=== PATIENT | male | born 1960 | race Caucasian/White ===

== ENCOUNTER → 2017-05-30 | Outpatient (CLI) | payer MEDICARE, OTHER | END | disposition home or self-care (01) | LOC: LABWHC1 17:29 | PROVIDERS: ATTEND Family Medicine | DX: A08.4 Viral intestinal infection, unspecified (principal) | CPT/HCPCS: 87045; 87046; 87324; 87329 ==

== ENCOUNTER → 2019-03-05 | Outpatient (CLI) | payer MEDICARE, OTHER ==
--- NOTE | 2019-03-06 10:03 | FL ---
EXAMINATION TYPE: FL barium swallow DATE OF EXAM: 03/05/2019 CLINICAL HISTORY: Amyotrophic lateral sclerosis and sensation feeling at the level of the thyroid fátima t is intermittent with choking. TECHNIQUE: A double contrast esophagram is performed utilizing air and barium. A total of 1 minute 18 seconds of fluoroscopic time was utilized during procedure. 19 fluoroscopic images were saved. COMPARISON: None FINDINGS: On initial swallow there is deep laryngeal penetration with the thin consistency. On a seco nd repeated swallow there is again deep penetration with a small amount of liquid barium layering on the true vocal cords. No cough reflex was elicited by the patient. Mild vallecular and piriform reten tion was also seen. Given the persistent penetration the patient was not placed in a supine position to continue the examination. Esophageal motility was unremarkable without tertiary contractions. Ante rior osteophytes at C4-C5, C5-C6 and C6-C7 to create a mild impression on the posterior esophagus wit hout obstruction. No stricture is seen. No hiatal hernia. IMPRESSION: 1. Persistent deep laryngeal penetration without eliciting a cough reflex. Modified barium swallow st udy is recommended. 2. Mild vallecular and piriform retention. 3. Impression on the posterior esophagus at C4-C5, C5-C6 and C6-C7 secondary to anterior bridging ost eophytes of the cervical spine. No stricture, no obstruction, and no hiatal hernia. No esophageal dys motility.
== END | disposition home or self-care (01) ==
LOC: RADUSWWP 11:07
PROVIDERS: ATTEND Psychiatry & Neurology Neurology
DX: G12.21 Amyotrophic lateral sclerosis (principal)
CPT/HCPCS: 74220

== ENCOUNTER → 2019-05-05 | Outpatient (CLI) | payer MEDICARE, OTHER ==
--- NOTE | 2019-05-05 14:13 | FL ---
EXAMINATION TYPE: FL barium swallow w video DATE OF EXAM: 05/05/2019 COMPARISON: NONE HISTORY: ALS, difficulty swallowing TECHNIQUE: Fluoroscopy. FINDINGS: Fluoroscopic guidance was provided for the procedure performed in conjunction with the [facility] pathology department. Please see complete report forthcoming from the Speech Pathology departmen t. Various consistencies from thin liquid to solids were administered. Fluoroscopy time 2 minutes 54 seconds. Number of images: 0. No aspiration was evident. Penetration was evident with nectar thick liquids. Pooling was evident within the vallecula. There is very poor bolus formation within the anterior oropharynx. With chin tuck and exertion some s wallowing could be performed. Additional episodes of penetration were not evident with other consiste ncies. There is marked hesitancy of swallowing initiation. IMPRESSION: 1. Penetration with nectar thick liquids.
== END | disposition home or self-care (01) ==
LOC: RADFLMAIN 11:14
PROVIDERS: ATTEND Psychiatry & Neurology Neurology
DX: G12.21 Amyotrophic lateral sclerosis (principal)
CPT/HCPCS: 74230

== ENCOUNTER 2019-06-04 13:27 | Emergency (ER) | payer MEDICARE, OTHER ==
[2019-06-04 13:47] VITALS: RESP 18
--- NOTE | 2019-06-04 14:34 | ED ---
General Adult HPI - General Source: family Mode of arrival: wheelchair Limitations: no limitations <David Lincoln - Last Filed: 06/05/19 01:44> <Akua Kerr - Last Filed: 06/08/19 16:35> - General Chief complaint: Recheck/Abnormal Lab/Rx Stated complaint: Fever, sent by DR Kennedy Seen by Provider: 06/04/19 14:13 - History of Present Illness Initial comments: Patient is a 58-year-old male with history of ALS and dementia is presenting to the emergency department with a chief complaint of fevers and chills. The is present in the room who is the historian this patient is nonverbal. The reports the patient developed an intermittent productive cough with unknown color of sputum yesterday. Patient also developed fevers and chills over the same period of time. states they went to the primary care with the patient had a fever in the suggested he come to the emergency department for further evaluation. Patient has a Mediport for daily ALS medication administration. Denies any vomiting or diarrhea, hematuria, hematochezia or melena. Patient denies any chest pain or abdominal pain. (David Lincoln) - Related Data Home Medications Medication Instructions Recorded Confirmed Albuterol Sulfate [Proair Hfa] 1 - 2 puff INHALATION RT-Q6H PRN 06/04/19 06/04/19 Ascorbic Acid [Vitamin C] 500 mg PO DAILY 06/04/19 06/04/19 Aspirin/Acetaminophen/Caffeine 1 tab PO DAILY PRN 06/04/19 06/04/19 [Excedrin Migraine Caplet] Cholecalciferol [Vitamin D3 (25 2,000 unit PO DAILY 06/04/19 06/04/19 Mcg = 1000 Iu)] Cyanocobalamin [Vitamin B-12 1,000 mcg SQ QMONTH 06/04/19 06/04/19 Injection] DULoxetine HCL [Cymbalta] 30 mg PO BID 06/04/19 06/04/19 Dextromethorphan HBr/Quinidine 1 cap PO Q12H 06/04/19 06/04/19 [Nuedexta 20-10 mg Capsule] Fluticasone Nasal [place] [Flonase 1 spray EA NOSTRIL BID 06/04/19 06/04/19 Nasal [place]] Fluticasone/Salmeterol [Advair 1 puff INHALATION RT-BID 06/04/19 06/04/19 100-50 Diskus] Glycopyrrolate [Robinul] 1 mg PO Q12H 06/04/19 06/04/19 Lactose-Reduced Food/Fiber [Jevity 1 can PO TID 06/04/19 06/04/19 1.2 Roly Liquid] Loratadine [Claritin] 10 mg PO DAILY 06/04/19 06/04/19 Omeprazole 40 mg PO DAILY 06/04/19 06/04/19 Riluzole [Rilutek] 50 mg PO Q12H 06/04/19 06/04/19 Rivastigmine [Rivastigmine 1 patch TRANSDERM DAILY 06/04/19 06/04/19 9.5MG/24Hr] Allergies Allergy/AdvReac Type Severity Reaction Status Date / Time amoxicillin [From Augmentin] Allergy Unknown Verified 06/04/19 14:45 clavulanic acid Allergy Unknown Verified 06/04/19 14:45 [From Augmentin] vancomycin Allergy Unknown Verified 06/04/19 14:45 Review of Systems ROS Other: All systems not noted in ROS Statement are negative. <David Lincoln - Last Filed: 06/05/19 01:44> ROS Other: All systems not noted in ROS Statement are negative. <Akua Kerr - Last Filed: 06/08/19 16:35> ROS Statement: Those systems with pertinent positive or pertinent negative responses have been documented in the HPI. Past Medical History Past Medical History: Dementia Additional Past Medical History / Comment(s): ALS, History of Any Multi-Drug Resistant Organisms: None Reported Past Surgical History: Hernia Repair, Joint Replacement, Orthopedic Surgery Past Psychological History: No Psychological Hx Reported Smoking Status: Never smoker Past Alcohol Use History: None Reported Past Drug Use History: None Reported <David Lincoln - Last Filed: 06/05/19 01:44> General Exam Limitations: no limitations, language barrier (Nonverbal) General appearance: alert, in no apparent distress Head exam: Present: atraumatic, normocephalic, normal inspection Eye exam: Present: normal appearance, PERRL, EOMI. Absent: conjunctival injection Pupils: Present: normal accommodation ENT exam: Present: normal exam, normal oropharynx, mucous membranes moist, TM's normal bilaterally, normal external ear exam Neck exam: Present: normal inspection, full ROM. Absent: lymphadenopathy Respiratory exam: Present: normal lung sounds bilaterally. Absent: respiratory distress, wheezes Cardiovascular Exam: Present: regular rate, normal rhythm, normal heart sounds GI/Abdominal exam: Present: soft, normal bowel sounds. Absent: tenderness, guarding, rebound, other (Negative McBurney point tenderness, negative Jackson, negative bacteria.) Extremities exam: Present: normal inspection, full ROM Back exam: Present: normal inspection, full ROM Neurological exam: Present: alert, oriented X3 Psychiatric exam: Present: normal affect, normal mood Skin exam: Present: warm, intact, normal color <David Lincoln - Last Filed: 06/05/19 01:44> Course Vital Signs 06/04/19 06/04/19 06/04/19 13:43 13:57 15:02 Temperature 98.5 F 97.5 F L Pulse Rate 104 H 89 Respiratory 18 18 18 Rate Blood Pressure 115/78 118/76 O2 Sat by Pulse 93 L 94 L Oximetry 06/04/19 18:01 Temperature 98.8 F Pulse Rate 70 Respiratory 18 Rate Blood Pressure 121/86 O2 Sat by Pulse 99 Oximetry Medical Decision Making - Lab Data Result diagrams: 06/04/19 15:00 06/04/19 15:00 <David Lincoln - Last Filed: 06/05/19 01:44> - Lab Data Result diagrams: 06/04/19 15:00 06/04/19 15:00 <Akua Kerr - Last Filed: 06/08/19 16:35> - Medical Decision Making Patient is a 58-year-old male with history of ALS and frontal dementia is presenting to emergency Department with a chief complaint of fever and chills. Patient is nonverbal. is the historian. According to , the patient has developed chills and tremors last night. They went to the primary care today who suggested they come to the ED for further evaluation and a possible pneumonia. states at the primary care the patient had a fever. Patient is afebrile in the ED. Chest x-ray is unremarkable. CBC, CMP are unremarkable. No leukocytosis. No tremors, shaking present in physical examination or throughout the ED stay. Patient is diaphoretic. Patient denies any chest pain or abdominal pain. At this point no further medical management is necessary as patient does not fit any admission criteria. Dr. Kerr also examined the patie nt and attempted to call the primary care physician but was not able to get in contact with him. Strict return parameters were thoroughly discussed with patient and were understanding and agreeable. Case discussed with physician. (David Lincoln) I was available for consultation in the emergency department. The history and physical exam was done by the midlevel provider. I was consulted for this patient's care. I reviewed the case with the midlevel provider and based on their presentation of the patient, I agree with the assessment, medical decision making and plan of care as documented. I then evaluated the patient myself. I attempted to call the patients PCP who was unavailable. I discussed the patients care with his . The feels reassured. The patient will be discharged home with strict return parameters. (Akua Kerr) - Lab Data Lab Results 06/04/19 06/04/19 06/04/19 Range/Units 15:00 15:00 15:43 WBC 4.8 (3.8-10.6) k/uL RBC 4.32 (4.30-5.90) m/uL Hgb 13.9 (13.0-17.5) gm/dL Hct 41.4 (39.0-53.0) % MCV 95.9 (80.0-100.0) fL MCH 32.3 (25.0-35.0) pg MCHC 33.7 (31.0-37.0) g/dL RDW 14.0 (11.5-15.5) % Plt Count 181 (150-450) k/uL Neutrophils % 81 % Lymphocytes % 8 % Monocytes % 7 % Eosinophils % 1 % Basophils % 0 % Neutrophils # 3.9 (1.3-7.7) k/uL Lymphocytes # 0.4 L (1.0-4.8) k/uL Monocytes # 0.4 (0-1.0) k/uL Eosinophils # 0.1 (0-0.7) k/uL Basophils # 0.0 (0-0.2) k/uL Sodium 137 (137-145) mmol/L Potassium 4.3 (3.5-5.1) mmol/L Chloride 103 (98-107) mmol/L Carbon Dioxide 25 (22-30) mmol/L Anion Gap 9 mmol/L BUN 22 H (9-20) mg/dL Creatinine 0.72 (0.66-1.25) mg/dL Est GFR (CKD-EPI)AfAm >90 (>60 ml/min/1.73 sqM) Est GFR (CKD-EPI)NonAf >90 (>60 ml/min/1.73 sqM) Glucose 122 H (74-99) mg/dL Calcium 9.0 (8.4-10.2) mg/dL Total Bilirubin 1.0 (0.2-1.3) mg/dL AST 35 (17-59) U/L ALT 28 (21-72) U/L Alkaline Phosphatase 83 (38-126) U/L Total Protein 6.7 (6.3-8.2) g/dL Albumin 3.9 (3.5-5.0) g/dL Influenza Type A RNA Not Detected (Not Detectd) Influenza Type B (PCR) Not Detected (Not Detectd) Disposition Is patient prescribed a controlled substance at d/c from ED?: No Time of Disposition: 17:51 <David Lincoln - Last Filed: 06/05/19 01:44> <Akua Kerr - Last Filed: 06/08/19 16:35> Clinical Impression: Chills, Diaphoresis Disposition: HOME SELF-CARE Condition: Stable Instructions (If sedation given, give patient instructions): Viral Pneumonia (DC) Additional Instructions: Please follow-up with your primary care. Please return to emergency department if symptoms worsen. Referrals: Antonio Palumbo MD [Primary Care Provider] - 1-2 days
--- NOTE | 2019-06-04 14:59 | XR ---
EXAMINATION TYPE: XR chest 2V DATE OF EXAM: 06/04/2019 COMPARISON: 09/24/2012 HISTORY: Shortness of breath TECHNIQUE: Frontal and lateral views of the chest are obtained. FINDINGS: Scattered senescent parenchymal changes noted. Hyperinflation compatible with COPD. No evidence for infiltrate. No evidence for atelectasis. Heart size is stable. Mediastinal structures are stable and grossly unremarkable. No evidence for hilar prominence. Degenerative changes dorsal spine. IMPRESSION: 1. No evidence for acute pulmonary disease.
[2019-06-04 15:11] LABS: Basophils % (A) 0 %; Eosinophils # (A) 0.1 k/uL (0-0.7); Eosinophils % (A) 1 %; HCT 41.4 % (39.0-53.0); HGB 13.9 gm/dL (13.0-17.5); Lymphocytes # (A) 0.4 k/uL (1.0-4.8); Lymphocytes % (A) 8 %; MCH 32.3 pg (25.0-35.0); MCHC 33.7 g/dL (31.0-37.0); MCV 95.9 fL (80.0-100.0); Mean Platelet Volume 6.9; Monocytes # (A) 0.4 k/uL (0-1.0); Monocytes % (A) 7 %; Neutrophils # (A) 3.9 k/uL (1.3-7.7); Neutrophils % (A) 81 %; Platelet Count 181 k/uL (150-450); RBC 4.32 m/uL (4.30-5.90); WBC 4.8 k/uL (3.8-10.6)
[2019-06-04 15:30] LABS: ALT 28 U/L (21-72); AST 35 U/L (17-59); African American GFR (CKD) >90 (>60 ml/min/1.73 sqM); Albumin 3.9 g/dL (3.5-5.0); Alkaline Phosphatase 83 U/L (38-126); Anion Gap 9 mmol/L; Blood Urea Nitrogen 22 mg/dL (9-20); Carbon Dioxide 25 mmol/L (22-30); Chloride 103 mmol/L (98-107); Glucose 122 mg/dL (74-99); Potassium 4.3 mmol/L (3.5-5.1); Sodium 137 mmol/L (137-145); Total Protein 6.7 g/dL (6.3-8.2)
[2019-06-04] MEDS ORDERED: SODIUM CHLORIDE 0.9% 500 ML 500 ML IV STA (16:05)
[2019-06-04 18:02] VITALS: BP 121/86; PULSE 70; TEMP 98.8
== END 2019-06-04 18:01 | disposition home or self-care (01) ==
LOC: EC 13:27
DX: R61 Generalized hyperhidrosis (principal); R68.83 Chills (without fever); G12.21 Amyotrophic lateral sclerosis; G31.09 Other frontotemporal neurocognitive disorder; F02.80 Dementia in other diseases classified elsewhere, unspecified severity, without behavioral disturbance, psychotic disturbance, mood disturbance, and anxiety; Z79.82 Long term (current) use of aspirin; Z79.899 Other long term (current) drug therapy; Z88.0 Allergy status to penicillin
CPT/HCPCS: 36415; 71046; 80053; 85025; 87502; 99283

== ENCOUNTER 2019-10-28 15:54 | Emergency (ER) | payer BC, MEDICARE, OTHER ==
--- NOTE | 2019-10-28 17:50 | ED ---
General Adult HPI - General Chief complaint: Recheck/Abnormal Lab/Rx Stated complaint: Feeding tube issues Time Seen by Provider: 10/28/19 16:00 Source: police Mode of arrival: wheelchair Limitations: no limitations, altered mental status, physical limitation - History of Present Illness Initial comments: The patient is a 59-year-old male with past nuchal history of ALS and dementia who presents to the emergency department with malfunction of his PEG tube. He does arrive from alf. Police do provide the history as the patient is nonverbal. They stated they attempted to use the PEG tube today however he did have some leaking from around it and it would not flush. They're unsure if the patient sustained any trauma to the tube. He did have to go to forensics today and they are unsure with the travel if it got manipulated. The patient cannot provide a history. No pain with palpation of the abdomen. There are no other alleviating, precipitating or modifying factors - Related Data Home Medications Medication Instructions Recorded Confirmed Albuterol Sulfate [Proair Hfa] 1 - 2 puff INHALATION RT-Q6H PRN 06/04/19 06/04/19 Ascorbic Acid [Vitamin C] 500 mg PO DAILY 06/04/19 06/04/19 Aspirin/Acetaminophen/Caffeine 1 tab PO DAILY PRN 06/04/19 06/04/19 [Excedrin Migraine Caplet] Cholecalciferol [Vitamin D3 (25 2,000 unit PO DAILY 06/04/19 06/04/19 Mcg = 1000 Iu)] Cyanocobalamin [Vitamin B-12 1,000 mcg SQ QMONTH 06/04/19 06/04/19 Injection] DULoxetine HCL [Cymbalta] 30 mg PO BID 06/04/19 06/04/19 Dextromethorphan HBr/Quinidine 1 cap PO Q12H 06/04/19 06/04/19 [Nuedexta 20-10 mg Capsule] Fluticasone Nasal [place] [Flonase 1 spray EA NOSTRIL BID 06/04/19 06/04/19 Nasal [place]] Fluticasone/Salmeterol [Advair 1 puff INHALATION RT-BID 06/04/19 06/04/19 100-50 Diskus] Glycopyrrolate [Robinul] 1 mg PO Q12H 06/04/19 06/04/19 Lactose-Reduced Food/Fiber [Jevity 1 can PO TID 06/04/19 06/04/19 1.2 Roly Liquid] Loratadine [Claritin] 10 mg PO DAILY 06/04/19 06/04/19 Omeprazole 40 mg PO DAILY 06/04/19 06/04/19 Riluzole [Rilutek] 50 mg PO Q12H 06/04/19 06/04/19 Rivastigmine [Rivastigmine 1 patch TRANSDERM DAILY 06/04/19 06/04/19 9.5MG/24Hr] Allergies Allergy/AdvReac Type Severity Reaction Status Date / Time amoxicillin [From Augmentin] Allergy Unknown Verified 10/28/19 16:01 clavulanic acid Allergy Unknown Verified 10/28/19 16:01 [From Augmentin] vancomycin Allergy Unknown Verified 10/28/19 16:01 Review of Systems ROS Statement: Those systems with pertinent positive or pertinent negative responses have been documented in the HPI. ROS Other: All systems not noted in ROS Statement are negative. Past Medical History Past Medical History: Dementia Additional Past Medical History / Comment(s): ALS, History of Any Multi-Drug Resistant Organisms: None Reported Past Surgical History: Hernia Repair, Joint Replacement, Orthopedic Surgery Past Psychological History: No Psychological Hx Reported Smoking Status: Never smoker Past Alcohol Use History: None Reported Past Drug Use History: None Reported General Exam Limitations: altered mental status, physical limitation General appearance: alert, in no apparent distress Respiratory exam: Present: normal lung sounds bilaterally. Absent: respiratory distress, wheezes, rales, rhonchi, stridor Cardiovascular Exam: Present: regular rate, normal rhythm, normal heart sounds. Absent: systolic murmur, diastolic murmur, rubs, gallop, clicks GI/Abdominal exam: Present: soft, other (peg tube, luq with mild blood surrounding skin opening. small amount of granulation tissue present). Absent: distended, tenderness Course Vital Signs 10/28/19 10/28/19 15:59 18:00 Temperature 97.5 F L 97.7 F Pulse Rate 86 78 Respiratory 16 18 Rate Blood Pressure 125/90 130/86 O2 Sat by Pulse 97 97 Oximetry Medical Decision Making - Medical Decision Making Upon the patient was placed into room 17. The patient does have some blood- tinged fluid around the base of his PEG tube. As the PEG tube is leaking I did recommend replacing it. The old tube is removed and there was no fluid within the balloon. I did replace using a 16-Cypriot JOHN tube. An x-ray with Isovue was performed after placement which demonstrated adequate placement of the PEG tube. It was inflated with 4 mL of sterile water. At this time the patient will be discharged to alf. Disposition Clinical Impression: PEG tube malfunction Disposition: HOME SELF-CARE Condition: Stable Instructions (If sedation given, give patient instructions): How to Use and Care for Your PEG Tube (ED) Additional Instructions: You received a new PEG tube today. Return to the emergency room for any new worsening symptoms Is patient prescribed a controlled substance at d/c from ED?: No Referrals: Antonio Palumbo MD [Primary Care Provider] - 1-2 days Time of Disposition: 17:50
--- NOTE | 2019-10-28 17:54 | XR ---
EXAMINATION TYPE: XR abdomen 1V DATE OF EXAM: 10/28/2019 COMPARISON: NONE HISTORY: PEG tube placement TECHNIQUE: Single view FINDINGS: Contrast was injected Isovue into the gastrostomy tube. Tube is in good position. The contr ast opacifies the stomach. There is no extravasation. IMPRESSION: PEG tube is in good position.
[2019-10-28 18:01] VITALS: BP 130/86; PULSE 78; RESP 18; TEMP 97.7
== END 2019-10-28 18:02 | disposition home or self-care (01) ==
LOC: EC 15:54
DX: K94.23 Gastrostomy malfunction (principal); F03.90 Unspecified dementia, unspecified severity, without behavioral disturbance, psychotic disturbance, mood disturbance, and anxiety; G12.21 Amyotrophic lateral sclerosis; Z88.0 Allergy status to penicillin; Z88.1 Allergy status to other antibiotic agents; Z79.51 Long term (current) use of inhaled steroids; Z79.899 Other long term (current) drug therapy
CPT/HCPCS: 99283; 43762; 74018; Q9967

== ENCOUNTER 2019-11-20 17:30 | Emergency (ER) | payer MEDICARE, OTHER ==
[2019-11-20 18:41] LABS: Basophils % (A) 0 %; Eosinophils % (A) 1 %; HCT 39.8 % (39.0-53.0); HGB 13.1 gm/dL (13.0-17.5); Lymphocytes # (A) 0.8 k/uL (1.0-4.8); Lymphocytes % (A) 13 %; MCH 31.6 pg (25.0-35.0); MCV 95.8 fL (80.0-100.0); Mean Platelet Volume 7.5; Monocytes # (A) 0.4 k/uL (0-1.0); Monocytes % (A) 6 %; Neutrophils # (A) 4.8 k/uL (1.3-7.7); Neutrophils % (A) 78 %; Platelet Count 200 k/uL (150-450); RBC 4.16 m/uL (4.30-5.90); RDW 13.5 % (11.5-15.5); WBC 6.1 k/uL (3.8-10.6)
--- NOTE | 2019-11-20 18:50 | XR ---
EXAMINATION TYPE: XR KUB DATE OF EXAM: 11/20/2019 COMPARISON: 10/28/2019 HISTORY: Check tube placement TECHNIQUE: A single view of the abdomen was obtained. FINDINGS: There is 35 mm of contrast injected into the PEG tube. Stomach has normal contour. I see no filling d efect. There is no contrast extravasation. IMPRESSION: Gastrostomy tube is in good position.
--- NOTE | 2019-11-20 18:50 | XR ---
EXAMINATION TYPE: XR chest 1V DATE OF EXAM: 11/20/2019 COMPARISON: 06/04/2019 HISTORY: Fever TECHNIQUE: FINDINGS: Heart and mediastinum are normal. Lungs are clear. Diaphragm is normal. Bony thorax is inta ct. There is right-sided central venous catheter with tip in the superior vena cava. IMPRESSION: Normal chest. No change.
[2019-11-20 18:58] LABS: ALT 23 U/L (4-49); AST 31 U/L (17-59); African American GFR (CKD) >90 (>60 ml/min/1.73 sqM); Alkaline Phosphatase 102 U/L (38-126); Anion Gap 5 mmol/L; Blood Urea Nitrogen 17 mg/dL (9-20); Calcium 9.2 mg/dL (8.4-10.2); Carbon Dioxide 32 mmol/L (22-30); Chloride 100 mmol/L (98-107); Glucose 113 mg/dL (74-99); Non-African American GFR(CKD) >90 (>60 ml/min/1.73 sqM); Potassium 4.6 mmol/L (3.5-5.1); Sodium 137 mmol/L (137-145); Total Bilirubin 0.5 mg/dL (0.2-1.3); Total Protein 6.7 g/dL (6.3-8.2)
--- NOTE | 2019-11-20 19:11 | ED ---
General Adult HPI - General Chief complaint: Recheck/Abnormal Lab/Rx Stated complaint: Peg Tube Issues Time Seen by Provider: 11/20/19 17:50 Source: patient, EMS, RN notes reviewed Mode of arrival: EMS Limitations: language barrier - History of Present Illness Initial comments: This a 59-year-old male presents emergency Department with chief complaint of clogged PEG tube. Patient reportedly was given medications this morning shortly after was unable to pass any fluids or medications through the PEG tube. Patient has underlying ALS is nonverbal and is taking care of at hospice house at this time. Caregiver in the room reports no recent illnesses. Patient had no medication changes. Vitals were reviewed showed evidence of a fever. I did question caregiver regarding antibiosis and she declines again. She does state that there is been some erosion and his port site in which they did not use any more as he was only receiving infusions for medications to slow down the progression of his ALS. Patient denies cough, congestion, vomiting, diarrhea - Related Data Home Medications Medication Instructions Recorded Confirmed Albuterol Sulfate [Proair Hfa] 1 - 2 puff INHALATION RT-Q6H PRN 06/04/19 06/04/19 Ascorbic Acid [Vitamin C] 500 mg PO DAILY 06/04/19 06/04/19 Aspirin/Acetaminophen/Caffeine 1 tab PO DAILY PRN 06/04/19 06/04/19 [Excedrin Migraine Caplet] Cholecalciferol [Vitamin D3 (25 2,000 unit PO DAILY 06/04/19 06/04/19 Mcg = 1000 Iu)] Cyanocobalamin [Vitamin B-12 1,000 mcg SQ QMONTH 06/04/19 06/04/19 Injection] DULoxetine HCL [Cymbalta] 30 mg PO BID 06/04/19 06/04/19 Dextromethorphan HBr/Quinidine 1 cap PO Q12H 06/04/19 06/04/19 [Nuedexta 20-10 mg Capsule] Fluticasone Nasal [place] [Flonase 1 spray EA NOSTRIL BID 06/04/19 06/04/19 Nasal [place]] Fluticasone/Salmeterol [Advair 1 puff INHALATION RT-BID 06/04/19 06/04/19 100-50 Diskus] Glycopyrrolate [Robinul] 1 mg PO Q12H 06/04/19 06/04/19 Lactose-Reduced Food/Fiber [Jevity 1 can PO TID 06/04/19 06/04/19 1.2 Roly Liquid] Loratadine [Claritin] 10 mg PO DAILY 06/04/19 06/04/19 Omeprazole 40 mg PO DAILY 06/04/19 06/04/19 Riluzole [Rilutek] 50 mg PO Q12H 06/04/19 06/04/19 Rivastigmine [Rivastigmine 1 patch TRANSDERM DAILY 06/04/19 06/04/19 9.5MG/24Hr] Allergies Allergy/AdvReac Type Severity Reaction Status Date / Time amoxicillin [From Augmentin] Allergy Unknown Verified 10/28/19 16:01 clavulanic acid Allergy Unknown Verified 10/28/19 16:01 [From Augmentin] vancomycin Allergy Unknown Verified 10/28/19 16:01 Review of Systems ROS Statement: Those systems with pertinent positive or pertinent negative responses have been documented in the HPI. ROS Other: All systems not noted in ROS Statement are negative. Past Medical History Past Medical History: Dementia Additional Past Medical History / Comment(s): ALS, History of Any Multi-Drug Resistant Organisms: None Reported Past Surgical History: Hernia Repair, Joint Replacement, Orthopedic Surgery Past Psychological History: No Psychological Hx Reported Smoking Status: Never smoker Past Alcohol Use History: None Reported Past Drug Use History: None Reported General Exam Limitations: language barrier General appearance: alert, in no apparent distress Head exam: Present: atraumatic, normocephalic, normal inspection Eye exam: Present: normal appearance, PERRL, EOMI. Absent: scleral icterus, conjunctival injection, periorbital swelling ENT exam: Present: normal exam, normal oropharynx, mucous membranes moist, TM's normal bilaterally Neck exam: Present: normal inspection, full ROM. Absent: tenderness, meningismus, lymphadenopathy Respiratory exam: Present: normal lung sounds bilaterally, other (Right upper chest area is noted open wound with which appears to have foreign body at the base, area of his Mediport). Absent: respiratory distress, wheezes, rales, rhonchi, stridor Cardiovascular Exam: Present: normal rhythm, tachycardia, normal heart sounds. Absent: systolic murmur, diastolic murmur, rubs, gallop, clicks GI/Abdominal exam: Present: soft, normal bowel sounds, other (PEG tube is noted, no erythema no drainage). Absent: distended, tenderness, guarding, rebound, rigid Neurological exam: Present: alert Skin exam: Present: warm, dry, intact, normal color. Absent: rash Course Vital Signs 11/20/19 17:33 Temperature 100 F H Pulse Rate 102 H Respiratory 20 Rate Blood Pressure 116/82 O2 Sat by Pulse 93 L Oximetry Procedures - Feeding Tube Replacement Reason for Replacement: not functioning/damaged Initial Tube Inserted: greater than 2 weeks Type of Tube: gastrostomy Use of Tube: medications and feeding Insertion Site Prior to Procedure: clean Tube Used for Reinsertion: other (PEG tube) Romanian Tube Size (F): 16 Balloon Size (mls): 5 Verification of Placement: KUB, gastrografin injection Tube Secured by: tape/dressing Patient Tolerated Procedure: well, no complications Medical Decision Making - Medical Decision Making 59-year-old presented for PEG tube replacement this was replaced no compilations. Patient noted a fever labs, chest x-ray urinalysis and flu were ordered at this time. This all appears to be negative. There is some concern is there is no open wound or on his port. I did discuss possibility of admission for removal of the court as this could be the source for his fever. They prefer to watch his symptoms flexed 24 hours if he persists with a fever he'll return for admission, port removal. Patient is currently on hospice care and will be transferred back to hospice house. - Lab Data Result diagrams: 11/20/19 18:15 11/20/19 18:15 Lab Results 11/20/19 11/20/19 11/20/19 Range/Units 18:15 18:15 18:15 WBC 6.1 (3.8-10.6) k/uL RBC 4.16 L (4.30-5.90) m/uL Hgb 13.1 (13.0-17.5) gm/dL Hct 39.8 (39.0-53.0) % MCV 95.8 (80.0-100.0) fL MCH 31.6 (25.0-35.0) pg MCHC 33.0 (31.0-37.0) g/dL RDW 13.5 (11.5-15.5) % Plt Count 200 (150-450) k/uL Neutrophils % 78 % Lymphocytes % 13 % Monocytes % 6 % Eosinophils % 1 % Basophils % 0 % Neutrophils # 4.8 (1.3-7.7) k/uL Lymphocytes # 0.8 L (1.0-4.8) k/uL Monocytes # 0.4 (0-1.0) k/uL Eosinophils # 0.0 (0-0.7) k/uL Basophils # 0.0 (0-0.2) k/uL Sodium 137 (137-145) mmol/L Potassium 4.6 (3.5-5.1) mmol/L Chloride 100 (98-107) mmol/L Carbon Dioxide 32 H (22-30) mmol/L Anion Gap 5 mmol/L BUN 17 (9-20) mg/dL Creatinine 0.67 (0.66-1.25) mg/dL Est GFR (CKD-EPI)AfAm >90 (>60 ml/min/1.73 sqM) Est GFR (CKD-EPI)NonAf >90 (>60 ml/min/1.73 sqM) Glucose 113 H (74-99) mg/dL Calcium 9.2 (8.4-10.2) mg/dL Total Bilirubin 0.5 (0.2-1.3) mg/dL AST 31 (17-59) U/L ALT 23 (4-49) U/L Alkaline Phosphatase 102 (38-126) U/L Total Protein 6.7 (6.3-8.2) g/dL Albumin 4.0 (3.5-5.0) g/dL Urine Color Urine Appearance (Clear) Urine pH (5.0-8.0) Ur Specific [place] (1.001-1.035) Urine Protein (Negative) Urine Glucose (UA) (Negative) Urine Ketones (Negative) Urine Blood (Negative) Urine Nitrite (Negative) Urine Bilirubin (Negative) Urine Urobilinogen (<2.0) mg/dL Ur Leukocyte Esterase (Negative) Urine Bacteria (None) /hpf Urine Mucus (None) /hpf Urine Yeast (Budding) (None) /hpf Influenza Type A RNA Not Detected (Not Detectd) Influenza Type B (PCR) Not Detected (Not Detectd) 11/20/19 Range/Units 19:00 WBC (3.8-10.6) k/uL RBC (4.30-5.90) m/uL Hgb (13.0-17.5) gm/dL Hct (39.0-53.0) % MCV (80.0-100.0) fL MCH (25.0-35.0) pg MCHC (31.0-37.0) g/dL RDW (11.5-15.5) % Plt Count (150-450) k/uL Neutrophils % % Lymphocytes % % Monocytes % % Eosinophils % % Basophils % % Neutrophils # (1.3-7.7) k/uL Lymphocytes # (1.0-4.8) k/uL Monocytes # (0-1.0) k/uL Eosinophils # (0-0.7) k/uL Basophils # (0-0.2) k/uL Sodium (137-145) mmol/L Potassium (3.5-5.1) mmol/L Chloride (98-107) mmol/L Carbon Dioxide (22-30) mmol/L Anion Gap mmol/L BUN (9-20) mg/dL Creatinine (0.66-1.25) mg/dL Est GFR (CKD-EPI)AfAm (>60 ml/min/1.73 sqM) Est GFR (CKD-EPI)NonAf (>60 ml/min/1.73 sqM) Glucose (74-99) mg/dL Calcium (8.4-10.2) mg/dL Total Bilirubin (0.2-1.3) mg/dL AST (17-59) U/L ALT (4-49) U/L Alkaline Phosphatase (38-126) U/L Total Protein (6.3-8.2) g/dL Albumin (3.5-5.0) g/dL Urine Color Yellow Urine Appearance Cloudy (Clear) Urine pH 7.5 (5.0-8.0) Ur Specific [place] 1.020 (1.001-1.035) Urine Protein Negative (Negative) Urine Glucose (UA) Negative (Negative) Urine Ketones Negative (Negative) Urine Blood Negative (Negative) Urine Nitrite Negative (Negative) Urine Bilirubin Negative (Negative) Urine Urobilinogen <2.0 (<2.0) mg/dL Ur Leukocyte Esterase Negative (Negative) Urine Bacteria Rare H (None) /hpf Urine Mucus Rare H (None) /hpf Urine Yeast (Budding) Many H (None) /hpf Influenza Type A RNA (Not Detectd) Influenza Type B (PCR) (Not Detectd) Disposition Clinical Impression: PEG tube malfunction, Fever Disposition: HOME SELF-CARE Condition: Stable Instructions (If sedation given, give patient instructions): How to Use and Care for Your PEG Tube (ED) Additional Instructions: Please return to the Emergency Department if symptoms worsen or any other concerns. Is patient prescribed a controlled substance at d/c from ED?: No Referrals: Antonio Palumbo MD [Primary Care Provider] - 1-2 days Time of Disposition: 19:33
[2019-11-20 19:17] LABS: Appearance,Urine Cloudy (Clear); Bacteria,Urine Rare /hpf; Bilirubin,Urine Negative (Negative); Blood,Urine Negative (Negative); Budding Yeast,Urine Many /hpf; Color,Urine Yellow; Glucose,Urine (UA) Negative (Negative); Ketones,Urine Negative (Negative); Leukocyte Esterase,Urine Negative (Negative); Mucus,Urine Rare /hpf; Nitrite,Urine Negative (Negative); PH, Urine 7.5 (5.0-8.0); Protein,Urine Negative (Negative); Urobilinogen,Urine <2.0 mg/dL (<2.0)
[2019-11-20 19:48] VITALS: BP 121/85; PULSE 83; RESP 18; TEMP 98
== END 2019-11-20 20:27 | disposition home or self-care (01) ==
LOC: EC 17:30
DX: K94.23 Gastrostomy malfunction (principal); R50.9 Fever, unspecified; S21.101A Unspecified open wound of right front wall of thorax without penetration into thoracic cavity, initial encounter; R00.0 Tachycardia, unspecified; Z51.5 Encounter for palliative care; G12.21 Amyotrophic lateral sclerosis; F03.90 Unspecified dementia, unspecified severity, without behavioral disturbance, psychotic disturbance, mood disturbance, and anxiety; Z88.0 Allergy status to penicillin; Z88.1 Allergy status to other antibiotic agents; Z79.51 Long term (current) use of inhaled steroids; Z79.899 Other long term (current) drug therapy; Z95.828 Presence of other vascular implants and grafts; X58.XXXA Exposure to other specified factors, initial encounter
CPT/HCPCS: 36415; 43762; 71045; 74018; 80053; 81001; 83605; 85025; 87502; 99283